=== PATIENT | male | born 1950 | race Caucasian/White ===

== ENCOUNTER 2019-08-03 14:47 | Observation (INO) ==
[2019-08-03] MEDS ORDERED: Isovue-370 500 ML BOTTLE IVP ONE (15:01)
[2019-08-03 15:09] LABS: Hematocrit 46.1 % (37.5-50.1); Hemoglobin 15.2 g/dL (12.9-16.9); Mean Corpuscular Hemoglobin 31.1 pg (28.0-33.3); Mean Corpuscular Volume 94.5 fL (83.0-100.0); Mean Platelet Volume 10.9 fL (9.4-12.4); Platelet Count 269 K/mcL (140-400); Red Blood Count 4.88 M/mcL (4.19-5.50); Red Cell Distribution Width 12.3 % (11.5-14.5); White Blood Count 9.1 K/mcL (4.3-11.1)
[2019-08-03 15:26] LABS: INR 1.1
[2019-08-03 15:29] LABS: Activated Partial Thrombo Time 32.4 Seconds (26.0-36.0)
[2019-08-03 15:47] LABS: BUN/Creatinine Ratio 16 (6-26); Blood Urea Nitrogen 17 mg/dL (8-23); Carbon Dioxide 29 mEq/L (23-29); Chloride 99 mEq/L (98-107); Glucose 102 mg/dL (70-105); Osmolality,Calculated 284 (280-300); Potassium 3.4 mEq/L (3.5-5.1); Sodium 136 mEq/L (136-145); Troponin I < 0.03 ng/mL (< 0.04); eGFR For African Americans > 60 (> 60); eGFR For Non-African Americans > 60 (> 60)
[2019-08-03] MEDS ORDERED: Aspirin 81 MG TAB.CHEW PO STA (16:09)
[2019-08-03] MEDS ORDERED: Naloxone 0.4 MG/ML INJ IVP PRN (17:37)
[2019-08-03] MEDS ORDERED: Ondansetron 4 MG/2 ML VIAL IVP PRN (17:37)
[2019-08-03] MEDS ORDERED: traZODone 50 MG TABLET PO PRN (17:38)
[2019-08-03] MEDS: Potassium Chloride Elixir 20 MEQ/15 ML UDC PO SCH ×2 (18:05→21:07)
[2019-08-04 03:29] VITALS: BP 157/55
[2019-08-04 06:11] LABS: Basophils % 0.3 %; Eosinophils # 0.1 K/mcL (0.0-0.6); Eosinophils % 1.4 %; Hematocrit 43.7 % (37.5-50.1); Hemoglobin 14.2 g/dL (12.9-16.9); Immature Granulocytes % 0.5 % (0-4); Lymphocytes # 1.7 K/mcL (0.6-4.6); Lymphocytes % 26.2 %; Mean Corpuscular HGB Conc 32.5 g/dL (31.6-35.5); Mean Corpuscular Hemoglobin 31.1 pg (28.0-33.3); Mean Corpuscular Volume 95.6 fL (83.0-100.0); Mean Platelet Volume 11.3 fL (9.4-12.4); Monocytes # 0.5 K/mcL (0.0-1.3); Monocytes % 7.9 %; Neutrophils # 4.2 K/mcL (1.6-8.9); Platelet Count 230 K/mcL (140-400); Red Blood Count 4.57 M/mcL (4.19-5.50); Red Cell Distribution Width 12.3 % (11.5-14.5); Segmented Neutrophils % 63.7 %; White Blood Count 6.6 K/mcL (4.3-11.1)
[2019-08-04 06:30] LABS: BUN/Creatinine Ratio 15 (6-26); Blood Urea Nitrogen 17 mg/dL (8-23); Calcium 9.7 mg/dL (8.6-10.3); Carbon Dioxide 30 mEq/L (23-29); Chloride 101 mEq/L (98-107); Glucose 95 mg/dL (70-105); Osmolality,Calculated 285 (280-300); Phosphorous 3.2 mg/dL (2.7-4.5); Potassium 3.8 mEq/L (3.5-5.1); Sodium 137 mEq/L (136-145); eGFR For African Americans > 60 (> 60); eGFR For Non-African Americans > 60 (> 60)
[2019-08-04] MEDS ORDERED: carvediloL 6.25 MG TABLET PO SCH (08:00)
[2019-08-04] MEDS ORDERED: amLODIPine 5 MG TABLET PO SCH (09:00)
[2019-08-04] MEDS ORDERED: Aspirin 81 MG TAB.CHEW PO SCH (09:00)
[2019-08-04] MEDS ORDERED: lisinopriL 20 MG TABLET PO SCH (09:00)
== END 2019-08-04 06:21 | disposition left against medical advice (07) ==
LOC: EMEROOARM 14:47 → 3BNU 14:47
PROVIDERS: ADMIT Student in an Organized Health Care Education/Training Program; ATTEND Student in an Organized Health Care Education/Training Program

== ENCOUNTER 2021-08-15 06:15 | Inpatient (IN) ==
[2021-08-15] MEDS ORDERED: CeFAZolin Syr 2,000MG/20 ML 2,000 MG/20 ML SYRINGE IVPB ONE (06:53)
[2021-08-15] MEDS ORDERED: Vancomycin 1,250 MG/262.5 ML IV.SOLN IVPB ONE ×3 (06:53→19:30)
[2021-08-15] MEDS ORDERED: *HR* FentaNYL (PF) 100 MCG/2 ML VIAL ONE ×2 (06:56→09:30)
[2021-08-15] MEDS ORDERED: Lidocaine HCL 4 ML Topical Solution (Laryng-O-Jet Kit Sterile Pak) TP ONE (06:57)
[2021-08-15] MEDS ORDERED: Ondansetron 4 MG/2 ML VIAL ONE (06:57)
[2021-08-15] MEDS ORDERED: *HR* Rocuronium Bromide 50 MG/5 ML VIAL ONE ×2 (06:57→10:22)
[2021-08-15] MEDS ORDERED: *HR* Propofol 200 MG/20 ML VIAL IVP ONE (06:57)
[2021-08-15] MEDS ORDERED: *HR* Phenylephrine 10 MG/ML VIAL ONE (06:57)
[2021-08-15] MEDS ORDERED: Lidocaine -MPF 2% 2 ML VIAL ONE ×2 (06:57→10:42)
[2021-08-15] MEDS ORDERED: Ringers Solution, Lactated 1,000 ML IVC SCH (07:00)
[2021-08-15] MEDS ORDERED: NiCARdipine 2.5 MG/10 ML Syringe IVPB ONE (07:05)
[2021-08-15] MEDS ORDERED: Nitroglycerin 0 MG/0 ML INFUS..BTL IVC ONE (07:05)
[2021-08-15] MEDS ORDERED: *HR* Norepinephrine 4 MG/4 ML VIAL IVC ONE (07:21)
[2021-08-15] MEDS ORDERED: Albuterol 2.5 MG/3 ML NEBULIZER IH ONE (07:34)
[2021-08-15] MEDS ORDERED: Heparin 1,000 UNITS/500 mL 500 ML ONE (07:42)
[2021-08-15] MEDS ORDERED: Bupivacaine-MPF 0.25% 10 ML VIAL ONE (07:42)
[2021-08-15] MEDS ORDERED: Vancomycin 1,000 MG, Sodium Chloride IRRigation 1,000 ML IR ONE (08:00)
[2021-08-15] MEDS ORDERED: *HR* Succinylcholine 200 MG/10 ML VIAL IVP ONE (08:02)
[2021-08-15] MEDS ORDERED: EPHEDrine 50 MG/ML VIAL ONE (08:44)
[2021-08-15] MEDS ORDERED: *HR* Heparin 5,000 UNIT/ML VIAL ONE (10:37)
[2021-08-15] MEDS ORDERED: Sugammadex Sodium 200 MG/2 ML VIAL IV ONE (10:42)
[2021-08-15] MEDS ORDERED: *HR* HYDROcodone/Acet 5/325 mg TABLET PO PRN (12:03)
[2021-08-15] MEDS ORDERED: *HR* Labetalol 20 MG/4 ML SYRINGE IVP PRN ×2 (12:03→14:46)
[2021-08-15] MEDS ORDERED: *HR* OxyCODONE Immed Rel 5 MG TABLET PO PRN (12:03)
[2021-08-15] MEDS ORDERED: Acetaminophen 325 MG TABLET PO PRN ×2 (12:03→14:46)
[2021-08-15] MEDS ORDERED: Naloxone 0.4 MG/ML INJ IVP PRN ×2 (12:03→14:46)
[2021-08-15] MEDS ORDERED: 0.9 % Sodium Chloride 1,000 ML IVC SCH ×2 (12:15→14:46)
[2021-08-15] MEDS ORDERED: *HR* OxyCODONE/APAP 5/325 TABLET PO PRN (12:16)
[2021-08-15] MEDS: *HR* FentaNYL (PF) 100 MCG/2 ML VIAL IVP PRN ×2 (12:30→12:37)
[2021-08-15] MEDS ORDERED: *HR* HYDROmorphone PF 0.5 MG/0.5 ML SYRINGE IVP PRN (12:57)
[2021-08-15] MEDS ORDERED: Acetaminophen IV 1,000 MG/100 ML BAG IVPB ONE (13:15)
[2021-08-15 13:32] VITALS: TEMP 98
[2021-08-15] MEDS: *HR* OxyCODONE Immed Rel 5 MG TABLET PO PRN ×2 (14:55→22:37)
[2021-08-15] MEDS ORDERED: CeFAZolin 2 GM/120 ML BAG IVPB SCH ×2 (16:00)
[2021-08-15] MEDS: *HR* Heparin 5,000 UNIT/ML VIAL SQ SCH ×2 (16:46→17:39)
[2021-08-15] MEDS: *HR* Metoprolol 5 MG/5 ML VIAL IVP SCH ×2 (17:39→23:05)
[2021-08-15] MEDS ORDERED: *HR* Metoprolol 5 MG/5 ML VIAL IVP SCH (18:00)
[2021-08-15] MEDS ORDERED: *HR* Heparin 5,000 UNIT/ML VIAL SQ SCH (18:00)
[2021-08-15] MEDS: *HR* OxyCODONE/APAP 5/325 TABLET PO PRN (20:40)
[2021-08-15] MEDS ORDERED: NON-FORMULARY MEDICATION 1 EACH EACH (Trazodone Hcl 100 MG Tablet) PO SCH (21:00)
[2021-08-16 04:59] LABS: Basophils % 0.2 %; Eosinophils % 0.1 %; Hemoglobin 12.8 g/dL (12.9-16.9); Immature Granulocytes % 0.5 % (0-4); Lymphocytes # 1.6 K/mcL (0.6-4.6); Lymphocytes % 10.3 %; Mean Corpuscular Hemoglobin 30.5 pg (28.0-33.3); Mean Corpuscular Volume 95.2 fL (83.0-100.0); Mean Platelet Volume 10.4 fL (9.4-12.4); Monocytes # 0.8 K/mcL (0.0-1.3); Monocytes % 5.3 %; Neutrophils # 12.9 K/mcL (1.6-8.9); Platelet Count 253 K/mcL (140-400); Red Cell Distribution Width 12.8 % (11.5-14.5); Segmented Neutrophils % 83.6 %; White Blood Count 15.4 K/mcL (4.3-11.1)
[2021-08-16 05:18] LABS: BUN/Creatinine Ratio 14 (6-26); Blood Urea Nitrogen 11 mg/dL (8-23); Calcium 8.8 mg/dL (8.6-10.3); Carbon Dioxide 31 mEq/L (23-29); Chloride 104 mEq/L (98-107); Glucose 99 mg/dL (70-105); Osmolality,Calculated 287 (280-300); Potassium 3.4 mEq/L (3.5-5.1); Sodium 139 mEq/L (136-145); eGFR For African Americans > 60 (> 60); eGFR For Non-African Americans > 60 (> 60)
[2021-08-16] MEDS: *HR* OxyCODONE Immed Rel 5 MG TABLET PO PRN ×2 (05:22→13:36)
[2021-08-16] MEDS: *HR* Metoprolol 5 MG/5 ML VIAL IVP SCH ×2 (05:23→13:36)
[2021-08-16] MEDS: *HR* Heparin 5,000 UNIT/ML VIAL SQ SCH (05:23)
[2021-08-16] MEDS: *HR* OxyCODONE/APAP 5/325 TABLET PO PRN ×2 (08:13→14:17)
[2021-08-16] MEDS ORDERED: Cholecalciferol (D-3) 1,000 UNIT (25MCG) TABLET PO SCH (09:00)
[2021-08-16] MEDS ORDERED: RIVAROXABAN PO SCH (09:00)
[2021-08-16 15:16] VITALS: BP 116/46; PULSE 78; O2SAT 95
== END 2021-08-16 16:58 | disposition home or self-care (01) | DRG 271 ==
LOC: SAMDAY 06:15 → 2NNU 14:36
PROVIDERS: ADMIT Surgery; ATTEND Surgery
PROC: VASFFBG (ICD-10-PCS; 2021-08-15 08:15)